=== PATIENT | female | born 1940 | race Caucasian/White ===

== ENCOUNTER → 2018-09-01 14:48 | Outpatient (CLI) | payer MEDICARE, SELFPAY ==
[2017-01-03 10:41] VITALS: BMI 17.1
[2018-09-01 15:36] LABS: Amphetamine Urine VISTA NEGATIVE (<1000 ng/mL); Barbiturate Urine VISTA NEGATIVE (< 200 ng/mL); Benzodiazepine Urine VISTA NEGATIVE (< 200 ng/mL); Cocaine Urine VISTA NEGATIVE (< 300 ng/mL); Ecstacy Urine VISTA NEGATIVE (< 500 ng/mL); Methadone Urine VISTA NEGATIVE (< 300 ng/mL); PCP Urine VISTA NEGATIVE (< 25 ng/mL); THC Urine VISTA NEGATIVE (< 50 ng/mL); Vista UDS pH Range 5
== END ==
PROVIDERS: Family Provider Family Medicine; PCP Family Medicine; Referring Provider Anesthesiology Pain Medicine; Visit Provider Anesthesiology Pain Medicine
DX: F11.20 Opioid dependence, uncomplicated (principal)
CPT/HCPCS: 80307

== ENCOUNTER → 2018-12-21 11:18 | Outpatient (CLI) | payer MEDICARE, SELFPAY ==
[2017-01-03 10:41] VITALS: BMI 17.1
--- NOTE | 2018-12-21 11:23 | RAD_ITS ---
STUDY: X-RAY - THORACIC SPINE REASON FOR EXAM: Female, 78 years old. Chronic back pain. TECHNIQUE: 3 view(s) of the thoracic spine were obtained. COMPARISON: January 04, 2017. Lumbar spine series December 21, 2018. FINDINGS: Patient is kyphotic not significantly changed. There is now a severe compression fracture at T11 which has progressed since the prior examination. Mild loss of vertebral body height at T12 not significantly changed. Multilevel small marginal osteophytes. Calcification of intervertebral disc at several levels in the lower thoracic spine unchanged. The soft tissue structures are unremarkable. There is now a cardiac pacemaker overlying left hemithorax. . RAD/Thoracic Spine 3 Views IMPRESSION: Severe compression fracture T11 which has progressed since the prior study. If the patient has focal tenderness in this specific location consider correlation with cross-sectional imaging. An acute fracture line is not identified and this fracture may represent a subacute or older finding. Otherwise no significant change since the prior study. Stable mild compression fracture T12. Multilevel degenerative changes. Electronically Signed: Blas Barrios MD at 5:25 EDT , Service support ,
--- NOTE | 2018-12-21 11:24 | RAD_ITS ---
STUDY: X-RAY - LUMBAR SPINE REASON FOR EXAM: Female, 78 years old. Chronic back pain. TECHNIQUE: 3 view(s) of the lumbar spine were obtained. COMPARISON: January 04, 2017. July 19, 2014. FINDINGS: Normal lumbar lordosis. There is no substantial scoliosis. There is a normal alignment of the vertebrae. 2 space narrowing L1-L2, L2-L3, 4-L5 and L5-S1 nonsignificantly changed. Mild loss of vertebral body height at L3 not significantly changed. Mild loss of vertebral body height at T12 not significantly changed. There is now a focal sclerotic density within the posterior aspect of the L2 vertebral body. This has the appearance of cement related to kyphoplasty . There is not significant loss of vertebral body height at this level since the prior study. Laminectomy L5. The soft tissue structures are unremarkable. RAD/Lumbar Spine 2 or 3 Views IMPRESSION: No acute findings in the lumbar spine. Postkyphoplasty changes L2 or less likely a sclerotic osseous lesion. Correlate with past surgical history. Mild loss of vertebral body height at T12 and L3 stable since prior study. Multilevel degenerative changes. Electronically Signed: Blas Barrios MD at 5:14 EDT , Service support ,
== END ==
PROVIDERS: Family Provider Family Medicine; PCP Family Medicine; Referring Provider Anesthesiology Pain Medicine; Visit Provider Anesthesiology Pain Medicine
DX: M54.9 Dorsalgia, unspecified (principal)
CPT/HCPCS: 72072; 72100

== ENCOUNTER → 2019-03-22 14:17 | Outpatient (CLI) | payer MEDICARE, SELFPAY ==
--- NOTE | 2019-03-22 14:27 | RAD_ITS ---
STUDY: X-RAY - LUMBAR SPINE REASON FOR EXAM: Female, 78 years old. Chronic back pain TECHNIQUE: 3 view(s) of the lumbar spine were obtained. COMPARISON: December 21, 2018 FINDINGS: Normal lumbar lordosis. There is a lumbar levoscoliosis. There is a normal alignment of the vertebrae. Previous vertebral plasty of L2. The depressed endplates at L3, increased since the previous study. Slightly narrowed disc space heights. Postsurgical changes of L4 and L5. The soft tissue structures are unremarkable. Stable mildly compression of T12 at the superior endplate. Stable severe compression of T11. RAD/Lumbar Spine 2 or 3 Views IMPRESSION: Degenerative changes and scoliosis of the lumbar spine. Increasing depressed endplates of L3 vertebral segment since the previous study. Electronically Signed: Clint Mcrae DO at 21:37 EDT Tel [phone], Service support ,
== END ==
PROVIDERS: Family Provider Family Medicine; PCP Family Medicine; Referring Provider Anesthesiology Pain Medicine; Visit Provider Anesthesiology Pain Medicine
DX: M54.9 Dorsalgia, unspecified (principal)
CPT/HCPCS: 72100

== ENCOUNTER → 2019-08-16 14:21 | Outpatient (CLI) | payer MEDICARE, SELFPAY ==
[2017-01-03 10:41] VITALS: BMI 17.1
[2019-08-16 15:12] LABS: Amphetamine Urine VISTA NEGATIVE (<1000 ng/mL); Barbiturate Urine VISTA NEGATIVE (< 200 ng/mL); Benzodiazepine Urine VISTA NEGATIVE (< 200 ng/mL); Cocaine Urine VISTA NEGATIVE (< 300 ng/mL); Ecstacy Urine VISTA NEGATIVE (< 500 ng/mL); Methadone Urine VISTA NEGATIVE (< 300 ng/mL); PCP Urine VISTA NEGATIVE (< 25 ng/mL); THC Urine VISTA NEGATIVE (< 50 ng/mL); Vista UDS pH Range 5
== END ==
PROVIDERS: PCP Family Medicine; Referring Provider Anesthesiology Pain Medicine; Visit Provider Anesthesiology Pain Medicine
DX: F11.20 Opioid dependence, uncomplicated (principal)
CPT/HCPCS: 80307

== ENCOUNTER → 2019-08-30 12:22 | Outpatient (CLI) | payer MEDICARE, SELFPAY ==
--- NOTE | 2019-08-30 12:28 | MRI_ITS ---
STUDY: MRI LUMBAR SPINE WITHOUT CONTRAST REASON FOR EXAM: Female, 79 years old. back pain,leg pain -- chronic low back pain with 8 prev lumbar surgeries from [id number], pain low back and rt leg, with legs being unstable at times TECHNIQUE: Standardized fat and water weighted pulse sequences were obtained in the sagittal and axial planes. COMPARISON: MRI of the lumbar spine dated May 27, 2015. Lumbar spine x-ray dated March 22, 2019 FINDINGS: Mild to moderate levoscoliosis reidentified. Asymmetric disc space narrowing, disc desiccation, and diffuse disc bulge is reidentified. No aggressive abnormality is seen. T11 significant blood chronic compression deformity in a vertebral plana configuration due to significant loss of height noted, and was not present on the 2014 MRI. T12 and L3 vertebral body chronic and mild compression deformities with approximately 30% loss of height are also noted and were not seen on the prior MRI exam. Rounded low signal material is present in the L2 vertebral body compatible with intraosseous treatment. No new compression deformity or fracture line. Normal lordosis. Unremarkable conus which terminates at the T12-L1 level. L1-2: Mild to moderate disc space narrowing is present resulting in a mild diffuse disc osteophyte complex. Normal bilateral facet joints. Normal central canal and bilateral lateral recesses. Normal bilateral intervertebral neural foramina. L2-3: Retrolisthesis of L2 on L3 of 3 mm is present. Moderate to significant posterior disc space narrowing is present and associated with mild broad-based is herniation. The anterior and central aspect of the disc space is relatively preserved. Normal bilateral facet joints. Normal central canal and bilateral lateral recesses. Normal bilateral intervertebral neural foramina. L3-4: Normal endplates. Minimal posterior disc space narrowing is present and annular bulging. Normal bilateral facet joints. Normal central canal and bilateral lateral recesses. Normal bilateral intervertebral neural foramina. L4-5: Mild endplate degenerative changes are present. Mild to moderate disc space narrowing is present with diffuse disc bulging. The facet joints are mildly degenerated. Normal central canal and left lateral recess. Right lateral recess stenosis with compression of descending nerve root is demonstrated due to asymmetry disc bulging. Normal bilateral intervertebral neural foramina. L5-S1: Normal endplates. Slight anterolisthesis of L5 on S1 of 2 to 3 mm is present. A chronic right L5 pars interarticularis defect is present. Mild right foraminal stenosis is present without nerve root compression. Normal left neural foramen. The disc space is preserved without posterior herniation or bulging. Posterior decompressive defects noted at this level. The facet joints and minimally degenerated. Normal central canal and bilateral lateral recesses. Normal visualized sacral ala. Normal visualized paraspinous soft tissue structures. The visualized aspects of the intra-abdominal intrapelvic structures show no significant abnormalities. MRI/Spine Lumbar (Routine) IMPRESSION: 1. Multilevel degenerative changes, as described above. 2. Right lateral recess stenosis with nerve root compression at L4-L5 from a disc bulge. 3. 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 4. Chronic compression deformities of the T11, T12, and L3 vertebral bodies. 5. T11 significant blood chronic compression deformity in a vertebral plana configuration due to significant loss of height noted, and was not present on the 2015 MRI. Electronically Signed: Joe Valencia MD at 14:54 EDT , Service support ,
[2019-08-30 13:30] VITALS: BP 153/85; PULSE 105; RESP 14; O2SAT 95
== END ==
PROVIDERS: PCP Family Medicine; Referring Provider Anesthesiology Pain Medicine; Visit Provider Anesthesiology Pain Medicine
DX: M54.9 Dorsalgia, unspecified (principal); M79.606 Pain in leg, unspecified
CPT/HCPCS: 72148

== ENCOUNTER → 2020-01-30 15:38 | Outpatient (CLI) | payer MEDICARE, SELFPAY ==
[2020-01-30 15:23] VITALS: BMI 17.1
--- NOTE | 2020-01-30 15:47 | RAD_ITS ---
STUDY: X-RAY - LEFT SHOULDER REASON FOR EXAM: Left shoulder pain, worsening, no recent injury. TECHNIQUE: 4 view(s) of the shoulder. COMPARISON: Radiographs 01/23/2013. FINDINGS: There is a small osteophyte of the humeral head and glenohumeral joint space narrowing. There is acromioclavicular arthrosis. Normal acromion. There is mild cystic change of the greater tuberosity. The soft tissue structures are unremarkable. Normal visualized pulmonary apex. RAD/Shoulder min 2 Views IMPRESSION: Glenohumeral arthrosis. Acromioclavicular arthrosis. Electronically Signed: Grayson Rodriguez MD at 7:43 EDT Tel , Service support ,
== END ==
PROVIDERS: PCP Family Medicine; Referring Provider Orthopaedic Surgery; Visit Provider Orthopaedic Surgery
DX: M25.512 Pain in left shoulder (principal)
CPT/HCPCS: 73030